=== PATIENT | female | born 1985 | race Hispanic/Latino ===

== ENCOUNTER 2017-02-11 19:37 | Emergency (ER) | payer SELFPAY ==
--- NOTE | 2017-02-11 20:15 | RAD ---
LEFT ANKLE THREE VIEW 02/11/17 HISTORY: Twisted ankle running up stairs in high heels one week ago. Pain laterally. COMPARISON: None. FINDINGS: There is a distal fibular fracture through the level of the syndesmosis. Ankle mortise is congruent. Moderate lateral malleolar edema. IMPRESSION: Rolle B distal fibular fracture. POS: [facility]
== END 2017-02-11 20:32 | disposition home or self-care (01) ==
LOC: NAV ERS 19:37
DX: S82.832A Other fracture of upper and lower end of left fibula, initial encounter for closed fracture (principal); X50.1XXA Overexertion from prolonged static or awkward postures, initial encounter; Y93.02 Activity, running